=== PATIENT | female | born 1985 | race Caucasian/White ===

== ENCOUNTER 2020-02-02 08:18 | Outpatient (CLI) | payer MEDICAID, OTHER ==
[2020-02-02 16:51] LABS: SARS-CoV-2 MS2 Positive; SARS-CoV-2 N Gene Negative; SARS-CoV-2 S Gene Negative; SARS-CoV-2 by NAA Not Detected (NotDetected); SARS-CoV-2 orf1ab Negative
== END 2020-02-02 08:19 | disposition home or self-care (01) ==
LOC: LABBT 08:18
PROVIDERS: ATTEND Family Medicine
DX: Z20.828 Contact with and (suspected) exposure to other viral communicable diseases (principal)
CPT/HCPCS: 87635; U0003

== ENCOUNTER 2020-02-05 09:09 | Day surgery (SDC) | payer OTHER ==
[2020-02-05 09:45] VITALS: BMI 27.6
[2020-02-05] MEDS ORDERED: Acetaminophen 500 MG TAB PO PRN (09:45)
[2020-02-05] MEDS ORDERED: Iron Sucrose Complex 500 MG in Sodium Chloride 0.9% 250 ML 250 ML IVPB SCH (09:45)
== END 2020-02-05 14:53 | disposition home health service (06) ==
LOC: L&D/OP 09:09
PROVIDERS: ATTEND Student in an Organized Health Care Education/Training Program
DX: Z34.90 Encounter for supervision of normal pregnancy, unspecified, unspecified trimester (principal)
CPT/HCPCS: J1756; J7050

== ENCOUNTER 2020-02-20 06:48 | Inpatient (IN) | payer OTHER ==
[2020-02-20] MEDS ORDERED: hydrALAZINE 20 MG/ML VIAL SLOW IVP PRN (07:46)
[2020-02-20 07:59] VITALS: BMI 27.8
[2020-02-20] MEDS ORDERED: Carboprost 250 MCG/ML AMP IM PRN (08:14)
[2020-02-20] MEDS ORDERED: HYDROcodone/Acetaminophen 5/325 mg Tablet PO PRN ×2 (08:14)
[2020-02-20] MEDS ORDERED: Methylergonovine 0.2 MG/ML VIAL IM PRN (08:14)
[2020-02-20] MEDS ORDERED: Promethazine HCl 25 MG/ML VIAL IM PRN (08:14)
[2020-02-20] MEDS ORDERED: Ibuprofen 800 MG TAB PO PRN (08:14)
[2020-02-20] MEDS ORDERED: Diphenoxylate HCl/Atropine Tablet PO PRN ×2 (08:14)
[2020-02-20] MEDS ORDERED: Ondansetron PF 4 MG/2 ML Vial IVP PRN (08:14)
[2020-02-20] MEDS ORDERED: NS / Oxytocin 40 units/1000ml 1,000 ML IV PRN (08:14)
[2020-02-20] MEDS ORDERED: Misoprostol 200 MCG TAB PR PRN (08:14)
[2020-02-20] MEDS ORDERED: Lidocaine 1% (PF) 30 ML VIAL SC PRN (08:14)
[2020-02-20] MEDS ORDERED: Penicillin G Potassium 5 MILL.UNITS in Sodium Chloride 0.9% 100 ML IVPB SCH (08:15)
[2020-02-20] MEDS ORDERED: NS w/ Oxytocin 10 units 500 ML IV SCH ×2 (08:15)
--- NOTE | 2020-02-20 08:31 | PDOC.FPROB ---
FMR OB H&P: HPI - History of Present Illness Chief Complaint: SROM Indentification: @ 37.2 WGA History of Present Illness: 34YO @ 37.2 WGA presenting for suspected ROM earlier this AM. Reports feeling a large gush of fluid leakage while in bed this AM @ ~0500 & continues to feel some leakage. Denies any regular painful contractions, VB or VD. + LOF. has been complicated by being late to care with first visit @ ~33 WGA. Has also seen MFM for anatomy survey as FOB was born with renal agenesis but reports the scans have been normal. Primary Care Physician: PNCMonisha Lehman FMR OB H&P: Current - Care : 5 Para: 2113 Gestational age: 37.2 weeks Due date: 03/07/2020 Dating Criteria: 33.5 week sono c/w LMP Course/Complications: late to PNC, FH renal agenesis, trich infection in 3T w/ no SHAMIR, severe anemia s/p iron transfusion, HSIL & HRHPV positive - OB Labs Blood type: O RH: positive Antibody Screen: negative HIV: negative RPR: negative HepBsAg: negative Rubella: immune Urine drug screen: not done Gonorrhea: negative Chlamydia: negative GBS: positive H&H: 7.4/23.7 on 01/31/20 before transfusion Platelets: 237 on 01/31/20 Additional labs: 2hr GTT WNLs - Anatomy Survey Anatomy survey: WNLs w/ MFM but did not comment on kidneys of fetus as views were limited 2/2 advanced gestational age FMR OB H&P: History - Past Medical History PMH: Hx depression & PPD - OB History OB History: #1: SAB in 1T #2: @ 40 WGA #3: @ 35 WGA #4: @ 39 WGA - CASH POSTING REPRESENTATIVE History CASH POSTING REPRESENTATIVE History: Pap this HSIL & HR HPV+, + for trich on 02/01/20 w/ no SHAMIR documented yet. 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 No EtOH use. Quit smoking a few weeks ago. Living at the [facility] in [place] currently. Does not have custody of her other 3 children. - Family History Family History: Mother- Cervical CA & HTN FOB- renal agenesis FMR OB H&P: Medications - Current Home Medications: Medication Instructions Recorded Confirmed Type Famotidine 1 tab PO BID 02/05/20 02/20/20 History Iron,Carb/Vit C/Vit B12/Folic 1 tablet PO DAILY 02/20/20 02/20/20 History [Iron 100 Plus] Vitamin 1 tablet PO DAILY 02/20/20 02/20/20 History Allergies/Adverse Reactions: Allergies Allergy/AdvReac Type Severity Reaction Status Date / Time No Known Drug Allergies Allergy Verified 02/05/20 09:47 FMR OB H&P: ROS - Review of Systems General: denies: fever/chills Eyes: denies: eye pain, vision changes ENT: denies: nasal congestion, rhinorrhea Cardiovascular: denies: chest pain, palpitation Respiratory: denies: cough, shortness of breath Gastrointestinal: denies: abdominal pain, nausea, vomiting, diarrhea Genitourinary (Female): reports: contractions. denies: dysuria, hematuria, vaginal discharge, vaginal pain, vaginal bleeding Musculoskeletal: denies: arthritis/arthralgias Neurologic: denies: seizures, headache Integumentary: denies: itching, rash Breast: denies: skin changes Endocrine: denies: polydipsia, polyuria Psychological: denies: depression, anxiety FMR OB H&P: Vital Signs - Heart Tones Baseline: 140 Variability: moderate Acceleration: present Deceleration: absent Category: category 1 [place] contractions every: 4-6 minutes FMR OB H&P: Physical Exam - Physical Exam General: NAD, awake, alert and oriented HEENT: normocephalic and atraumatic, grossly normal vision, grossly normal hearing Neck: supple, FROM Heart: RRR, normal S1/S2, no murmurs/rubs/gallops, pulses present, no edema General: CTAB, no respiratory distress Abdomen: gravid, non-tender Musculoskeletal: normal gait and station, FROM in all four extremities Neurological: cranial nerves II through XII intact, sensation to pain,touch and proprioception grossly normal, no focal deficit Skin: no rash Lymphatic: no unusual bruising or bleeding, no purpura, no petechia Psychiatric: intact recent and remote memory, good judgement and insight, normal mood and affect - Pelvic Exam Deviation from normal: meconuim stained fluid noted on cervical exam SVE: 4/50/-2 Membranes: ruptured Presentation: cephalic FMR OB H&P: A/P - Problem List (1) Rupture of membranes with meconium present Current Visit: Yes Status: Acute Code(s): O77.0 - LABOR AND DELIVERY COMPLICATED BY MECONIUM IN AMNIOTIC FLUID (2) Term Current Visit: Yes Status: Acute Code(s): Z34.90 - ENCNTR FOR SUPRVSN OF NORMAL , UNSP, UNSP TRIMESTER (3) Late care affecting Current Visit: Yes Status: Acute Code(s): O09.30 - SUPRVSN OF PREG W INSUFFICIENT ANTENAT CARE, UNSP TRIMESTER Qualifiers: Trimester: third trimester Qualified Code(s): O09.33 - Supervision of with insufficient care, third trimester Disposition: 34YO @ 37.2 WGA by LMP c/w 33.5 week sono presenting for suspected ROM this AM which was confirmed on exam upon arrival. term SROM: - On exam on arrival light meconium stained fluid was noted, cervical check was 4/50/-2 & regular contractions began shortly after arrival as well but not very painful to patient. - In light of SROM, will admit for routine labor management & start pitocin for augmentation given favorable cervix & meconium stained fluid. - Maternal vitals WNLs & Cat 1 strip w/ baseline in 140s, multiple accels & no decels noted. Ctxs noted q 4-5 minutes. - GBS + so will start pen G infusion as well. late to PNC: - Patient has a difficult social situation & was late to care after moving into town late in her to get away from the FOB who uses drugs. Former drug user her self so doesn't have custody of her other children. Currently living at [facility]. Will obtain a UDS and consult CM to ensure patient will have adequate support following the delivery. Trichonomas + in 3T: - Per chart review, + for trich on 02/01/20. No SHAMIR documented. Will obtain a VP3 on admission. FH of renal agenesis: - Per chart review patient saw [facility] for a survey but no comment was made regarding renal status of fetus. May consider renal US PP. Hx tobacco use: - Quit a few weeks ago. Will encourage continued cessation PP. Hx of meth use: - UDS on admission & consulting CM as noted above. Hx PROM & PTD: - Aware, patient already term this . Dispo: Will admit to L&D for routine intrapartum management. Discussion: Date/Time: 02/20/20828 This H&P was discussed with Dr. Puente who agrees with the above documentation and plan.
[2020-02-20] MEDS ORDERED: Penicillin G Potassium 5 MILL.UNITS VIAL ONE ×2 (08:32→15:01)
[2020-02-20] MEDS: Lactated Ringer's 1,000 ML IV SCH ×3 (09:00→20:17)
[2020-02-20 09:34] LABS: Hemoglobin 10.4 g/dL (12.0-16.0); Mean Corpuscular HGB CONC 33.1 g/dL (32.0-36.0); Mean Corpuscular Hemoglobin 27.5 pg (27.0-31.0); Mean Corpuscular Volume 82.9 fL (78.0-98.0); Mean Platelet Volume 11.2 fL (7.4-10.4); Platelet Count 212 thou/uL (130-400); RBC Distribution Width 22.6 % (11.5-14.5); Red Blood Cell (RBC) Count 3.77 mill/uL (4.20-5.40); White Blood Cell (WBC) Count 8.7 thou/uL (4.8-10.8)
[2020-02-20 10:13] LABS: HBSAg Index 0.14 S/CO (0-0.99); Hep B Surf Ag Non-Reactive S/CO (NonReactive)
[2020-02-20 10:13] LABS: Syphilis Antibody Nonreactive (Nonreactive); Syphilis Antibody Index 0.04 S/CO (<1.00 Non-Reactive)
[2020-02-20 10:41] LABS: Amphetamine Not Detected (NotDetected); Barbiturates Screen Not Detected (NotDetected); Benzodiazepine Screen Not Detected (NotDetected); Cocaine Metabolite Screen Not Detected (NotDetected); Medtox Control Line Valid? VALID (VALID); Medtox Reader # READER 1; Methadone Not Detected (NotDetected); Methamphetamine Not Detected (NotDetected); Opiate Screen Not Detected (NotDetected); Oxycodone Screen Not Detected (NotDetected); Phencyclidine (PCP) Not Detected (NotDetected); THC/Cannabinoid Screen Not Detected (NotDetected); Tricyclic Screen Not Detected (NotDetected)
--- NOTE | 2020-02-20 10:51 | PDOC.LDPN ---
Labor & Delivery Progress Note - Subjective Subjective: comfortable (contractions slowly getting more painful) - Objective Vital signs reviewed and normal: yes General: NAD, resting Dilation: 5 Effacement: 75% Station: -1 FHT: category 1 Resuscitative measures: maternal IV fluids Plan: continue plan of care, labor augmentation, pitocin for augmentation -: -pt still does not want epidural though she has watched video -making progress slowly -will monitor closely and recheck within 4hrs once she starts feeling contractions more
[2020-02-20] MEDS: Penicillin G 2.5 MILL.units 2.5 MILL.UNITS in Premix Bag 1 BAG IVPB SCH ×2 (12:48→17:15)
--- NOTE | 2020-02-20 14:04 | PDOC.OPDEL ---
OB Operative/Delivery Note - Additional Findings/Plan Compilations/Other Findings: Delivering Physician: Karen Sanders Attending: Dr. Puente Procedure: Spontaneous Vaginal Delivery Anesthesia: none QBL: 276 ml Pre-op Diagnosis: 1. Term intrauterine in labor 2. Late to care 3. Severe anemia of s/p iron transfusion Post-op Diagnosis: 1. Term intrauterine , delivered 2. same as above Indications: A 34 y/o female presents in labor after SROM at home notable for meconium. Delivery Note: This is 34 yo F @ 37.2 wks who delivered a viable F infant at 1336 on 02/20/20. Following an uneventful antepartum course, a vigorous female was delivered over an intact perineum in the occipitoanterior position. Anterior Shoulder and then remainder of the body delivered. No nuchal cord. The head was held down and mouth and nares were bulb suctioned. Cord c lamped after delayed cord clamping and cut and cord blood collected. Placenta delivered intact (in the Durán presentation) with a 3 vessel cord noted. Fundal massage was performed and the fundus was firm. The cervix and vagina were inspected and found to have one small laceration that was hemostatic and did not require repair. went to nursery in good condition for routine care. Apgars were 8/9 at 1 & 5 minutes, respectively. Patient tolerated delivery well and went to after routine recovery/care. Addendum - Attending - Attending Attestation Date/Time: 02/21/20 4457 I personally evaluated the patient and discussed the management with Dr. PIMENTEL I agree with the History, Examination, Assessment and Plan documented above with any addition or exceptions noted below. I was present and supervising, and instructing through the 2nd and 3rd stages of labor
[2020-02-20] MEDS ORDERED: Preparation H Ointment 28 GM TUBE PR PRN (15:49)
[2020-02-20] MEDS ORDERED: diphenhydrAMINE 25 MG CAP PO PRN (15:49)
[2020-02-20] MEDS ORDERED: Bisacodyl 10 MG SUPP PR PRN (15:49)
[2020-02-20] MEDS ORDERED: Lanolin Ointment 7 GM TUBE TOP PRN (15:49)
[2020-02-20] MEDS ORDERED: NS / Oxytocin 40 units/1000ml 1,000 ML IV SCH (15:49)
[2020-02-20] MEDS ORDERED: Milk Of Magnesia 30 ML UDCUP PO PRN (15:49)
[2020-02-20] MEDS ORDERED: Benzocaine-Menthol 82.5 ML CAN TOP PRN (15:49)
[2020-02-20 16:15] LABS: SARS-CoV-2 MS2 Positive; SARS-CoV-2 N Gene Negative; SARS-CoV-2 S Gene Negative; SARS-CoV-2 by NAA Not Detected (NotDetected); SARS-CoV-2 orf1ab Negative
[2020-02-20] MEDS ORDERED: Ferrous Sulfate 325 MG TAB PO SCH (17:00)
[2020-02-20] MEDS: Ibuprofen 800 MG TAB PO SCH ×2 (17:15→19:47)
[2020-02-20] MEDS: Docusate Calcium (SURFAK) 240 MG CAP PO SCH (19:47)
[2020-02-21] MEDS: Ibuprofen 800 MG TAB PO SCH ×3 (04:49→21:47)
--- NOTE | 2020-02-21 07:02 | PDOC.OBPPN ---
FMR OB PN: Subj - Interval History Hospital Day: 2 Day: 1 Chief Complaint: None Indentification: 34YO Interval History: Tolerating PO, voiding & passing gas normally. Pain controlled. VS stable. FMR OB PN: Obj - Maternal Vital signs: BP: 136/84 HR: 75 RR: 16 Tmax: 98.9F Pox: 97% on RA Wt: 68 kg - Urine output I&O: 02/20/20 02/21/20 02/22/20 06:59 06:59 06:59 Output Total 604 Balance -604 - Lochia Lochia: normal - Pain Management Pain scale: 0 Intervention: oral medication FMR OB PN: Exam - Physical Exam General: NAD, awake, alert and oriented HEENT: normocephalic and atraumatic, conjunctiva clear, grossly normal vision, grossly normal hearing Neck: supple, FROM Heart: RRR, normal S1/S2, no murmurs/rubs/gallops, pulses present, no edema General: CTAB, no respiratory distress, good air movement Abdomen: gravid, fundus(cm) (firm just below umbilicus), bowel sound present Musculoskeletal: normal gait and station, pulses present, FROM in all four extremities Neurological: cranial nerves II through XII intact, sensation to pain,touch and proprioception grossly normal, no focal deficit Lymphatic: no unusual bruising or bleeding, no purpura, no petechia Psychiatric: intact recent and remote memory, good judgement and insight, normal mood and affect - Pelvic Exam : perineal incision/laceration healing well, no discharge, no edema, normal lochia FMR OB PN: Data - Labs Lab results: Laboratory Results - last 24 hr 02/20/20 02/20/20 02/20/20 09:22 09:22 09:22 WBC 8.7 RBC 3.77 L Hgb 10.4 L Hct 31.3 L MCV 82.9 MCH 27.5 MCHC 33.1 RDW 22.6 H Plt Count 212 MPV 11.2 H Urine Opiates Screen Ur Oxycodone Screen Urine Methadone Screen Ur Propoxyphene Screen Ur Barbiturates Screen Ur Tricyclics Screen Ur Phencyclidine Scrn Ur Amphetamines Screen U Methamphetamines Scrn U Benzodiazepines Scrn U Cocaine Metab Screen U Cannabinoids Screen Drug Screen Comment Syphilis IgG/IgM Ab SARS-CoV-2 (PCR) Hep Bs Antigen Non-Reactive Blood Type O POSITIVE Antibody Screen NEGATIVE 02/20/20 02/20/20 02/20/20 09:23 10:11 10:12 WBC RBC Hgb Hct MCV MCH MCHC RDW Plt Count MPV Urine Opiates Screen Not Detected Ur Oxycodone Screen Not Detected Urine Methadone Screen Not Detected Ur Propoxyphene Screen Not Detected Ur Barbiturates Screen Not Detected Ur Tricyclics Screen Not Detected Ur Phencyclidine Scrn Not Detected Ur Amphetamines Screen Not Detected U Methamphetamines Scrn Not Detected U Benzodiazepines Scrn Not Detected U Cocaine Metab Screen Not Detected U Cannabinoids Screen Not Detected Drug Screen Comment Syphilis IgG/IgM Ab Nonreactive SARS-CoV-2 (PCR) Not Detected Hep Bs Antigen Blood Type Antibody Screen 02/20/20 11:29 WBC RBC Hgb Hct MCV MCH MCHC RDW Plt Count MPV Urine Opiates Screen Ur Oxycodone Screen Urine Methadone Screen Ur Propoxyphene Screen Ur Barbiturates Screen Ur Tricyclics Screen Ur Phencyclidine Scrn Ur Amphetamines Screen U Methamphetamines Scrn U Benzodiazepines Scrn U Cocaine Metab Screen U Cannabinoids Screen Drug Screen Comment Syphilis IgG/IgM Ab SARS-CoV-2 (PCR) Hep Bs Antigen Blood Type O POSITIVE Antibody Screen FMR OB PN: A/P - Problem List (1) Rupture of membranes with meconium present Current Visit: Yes Status: Acute Code(s): O77.0 - LABOR AND DELIVERY COMPLICATED BY MECONIUM IN AMNIOTIC FLUID (2) Term Current Visit: Yes Status: Acute Code(s): Z34.90 - ENCNTR FOR SUPRVSN OF NORMAL , UNSP, UNSP TRIMESTER (3) Late care affecting Current Visit: Yes Status: Acute Code(s): O09.30 - SUPRVSN OF PREG W INSUFFICIENT ANTENAT CARE, UNSP TRIMESTER Qualifiers: Trimester: third trimester Qualified Code(s): O09.33 - Supervision of with insufficient care, third trimester Disposition: 34YO who is PP day #1 s/p @ 37.2 WGA. PP day #1 s/p term : - Patient doing well without complaints. Tolerating PO, passing gas, voiding & ambulating normally. Pain well controlled on PO meds. Elevated BPs without diagnosis of HTN, gHTN or pre-e: - Patient had 2 104 SBPs intrapartum & 1 149 SBP PP. No severe range symptoms. Will continue to monitor pressures over course of today. Iron deficiency anemia: - Admission Hgb 10.4 s/p iron infusion & back down to 8.4 this AM. Will continue PO iron & PNVs PP. late to PNC: - Patient has a difficult social situation & was late to care after moving into town late in her to get away from the FOB who uses drugs. Former drug user her self so doesn't have custody of her other children. Currently living at [facility] in [place]. UDS negative on admission and CM evaluation pending to ensure patient will have adequate support following the delivery. Trichonomas + in 3T: - negative SHAMIR done on admission. FH of renal agenesis: - Per chart review patient saw [facility] for a survey but no comment was made regarding renal status of fetus. May consider renal US prior to d/c. Hx tobacco use: - Quit a few weeks ago. Will encourage continued cessation PP. Hx of meth use: - UDS negative on admission & CM consulted as noted above. HSIL & HRHPV + pap antepartum: - Patient needs colpo 6 weeks PP. Will f/u in 2 weeks for routine PP visit & again @ 4 weeks to ensure colpo gets JANINE. Dispo: Will plan to monitor BPs today & d/c home tomorrow AM pending clinical course. Discussion: Date/Time: 02/21/20 0700 This H&P was discussed with Dr. Puente who agrees with the above documentation and plan.
[2020-02-21 07:21] LABS: #Basophils 0.1 thou/uL (0.0-0.2); #Eosinphils 0.3 thou/uL (0.0-0.7); #Lymphocytes 3.8 thou/uL (1.20-3.40); #Monocytes 0.8 thou/uL (0.11-0.59); #Neutrophils 9.9 thou/uL (1.40-6.50); %Basophils 0.5 % (0.0-1.0); %Lymphocytes 25.6 % (21.0-51.0); %Monocytes 5.4 % (0.0-10.0); %Neutrophils 66.5 % (42.0-75.0); Hemoglobin 8.4 g/dL (12.0-16.0); Mean Corpuscular HGB CONC 32.1 g/dL (32.0-36.0); Mean Corpuscular Hemoglobin 27.5 pg (27.0-31.0); Mean Corpuscular Volume 85.5 fL (78.0-98.0); Mean Platelet Volume 10.6 fL (7.4-10.4); Platelet Count 195 thou/uL (130-400); RBC Distribution Width 22.7 % (11.5-14.5); Red Blood Cell (RBC) Count 3.04 mill/uL (4.20-5.40); White Blood Cell (WBC) Count 14.9 thou/uL (4.8-10.8)
[2020-02-21 07:22] LABS: MDiff Complete? YES
[2020-02-21] MEDS ORDERED: FLU VACC QS2020-21(6MOS UP)/PF 60 MCG/0.5 ML SYRINGE IM ONE (08:15)
[2020-02-21] MEDS ORDERED: Ferrous Sulfate 325 MG TAB PO SCH (09:00)
[2020-02-21] MEDS: Docusate Calcium (SURFAK) 240 MG CAP PO SCH ×2 (09:24→21:47)
[2020-02-21] MEDS: Adacel (T-DAP) 0.5 ML SYRINGE IM ONE (09:28)
[2020-02-22] MEDS: Ibuprofen 800 MG TAB PO SCH (05:32)
--- NOTE | 2020-02-22 07:02 | PDOC.OBPPN ---
FMR OB PN: Subj - Interval History Hospital Day: 3 Day: 2 Chief Complaint: None Indentification: 34YO who is PP day #2 s/p @ 37.2 WGA Interval History: Tolerating PO, voiding, passing gas & ambulating normally. Pain controlled. FMR OB PN: Obj - Maternal Vital signs: BP: 126/74 HR: 78 RR: 20 Tmax: 98.1F Pox: 99% on RA Wt: 68 kg - Urine output I&O: 02/21/20 02/22/20 02/23/20 06:59 06:59 06:59 Output Total 604 Balance -604 - Lochia Lochia: minimal - Pain Management Pain scale: 0 Intervention: oral medication FMR OB PN: Exam - Physical Exam General: NAD, awake, alert and oriented HEENT: normocephalic and atraumatic, grossly normal vision, grossly normal hearing Neck: supple, FROM Heart: RRR, normal S1/S2, no murmurs/rubs/gallops General: CTAB, no respiratory distress, good air movement Abdomen: soft, fundus(cm) (firm just below umbilicus), non-tender Musculoskeletal: normal gait and station, FROM in all four extremities Neurological: cranial nerves II through XII intact, sensation to pain,touch and proprioception grossly normal, no focal deficit Psychiatric: intact recent and remote memory, good judgement and insight, normal mood and affect - Pelvic Exam : normal lochia FMR OB PN: Data - Labs Lab results: Laboratory Results - last 24 hr 02/21/20 06:12 WBC 14.9 H RBC 3.04 L Hgb 8.4 L Hct 26.0 L MCV 85.5 MCH 27.5 MCHC 32.1 RDW 22.7 H Plt Count 195 MPV 10.6 H Neutrophils % 66.5 Neutrophils % (Manual) Not Reportable Lymphocytes % 25.6 Monocytes % 5.4 Eosinophils % 2.0 Basophils % 0.5 Neutrophils # 9.9 H Lymphocytes # 3.8 H Monocytes # 0.8 H Eosinophils # 0.3 Basophils # 0.1 FMR OB PN: A/P - Problem List (1) Rupture of membranes with meconium present Current Visit: Yes Status: Acute Code(s): O77.0 - LABOR AND DELIVERY COMPLICATED BY MECONIUM IN AMNIOTIC FLUID (2) Term Current Visit: Yes Status: Acute Code(s): Z34.90 - ENCNTR FOR SUPRVSN OF NORMAL , UNSP, UNSP TRIMESTER (3) Late care affecting Current Visit: Yes Status: Acute Code(s): O09.30 - SUPRVSN OF PREG W INSUFFICIENT ANTENAT CARE, UNSP TRIMESTER Qualifiers: Trimester: third trimester Qualified Code(s): O09.33 - Supervision of with insufficient care, third trimester Disposition: 34YO who is PP day #2 s/p @ 37.2 WGA. PP day #2 s/p term : - Patient doing well without complaints. Tolerating PO, passing gas, voiding & ambulating normally. Pain well controlled on PO meds. Continue routine PP care. Elevated BPs without diagnosis of HTN, gHTN or pre-e: - Patient had 2 140 SBPs intrapartum & now 2 140s SBP PP. No severe range symptoms. Will have patient monitor BP daily upon d/c have her f/u @ PNC within 1 week of discharge for close monitoring. Iron deficiency anemia: - Admission Hgb 10.4 s/p iron infusion & back down to 8.4 yesterday. Will continue PO iron & PNVs PP. late to PNC: - Patient has a difficult social situation & was late to care after moving into town late in her to get away from the B who uses drugs. Former drug user her self so doesn't have custody of her other children. Currently living at [facility] in [place]. UDS negative on admission and CM cleared baby for d/c back to [facility] with mom upon discharge yesterday. Trichonomas + in 3T: - negative SHAMIR done on admission. FH of renal agenesis: - Per chart review patient saw [facility] [place] & 2 kidneys were noted. Hx tobacco use: - Quit a few weeks ago. Will encourage continued cessation PP. Hx of meth use: - UDS negative on admission & CM consulted as noted above. HSIL & HRHPV + pap antepartum: - Patient needs colpo 6 weeks PP. Will f/u in 1 week for routine PP visit & again @ 2 weeks to ensure colpo gets JANINE. Dispo: Will d/c to B&B today as infant was started on phototherapy this AM. Discussion: Date/Time: 02/22/20 07 This H&P was discussed with Dr. Davis who agrees with the above documentation and plan.
[2020-02-22 07:53] VITALS: BP 126/74; TEMP 98.1
[2020-02-22] MEDS: Docusate Calcium (SURFAK) 240 MG CAP PO SCH (09:03)
[2020-02-22] MEDS ORDERED: Boostrix 0.5 ML VIAL IM ONE (10:45)
[2020-02-22] MEDS: Adacel (T-DAP) 0.5 ML SYRINGE IM ONE (11:12)
== END 2020-02-22 11:30 | disposition home or self-care (01) | DRG 806 ==
LOC: L&D/OP 06:48 → L&D 07:19 → 3SW 17:51
PROVIDERS: ADMIT Obstetrics & Gynecology; ATTEND Obstetrics & Gynecology
PROC: 10E0XZZ Delivery of Products of Conception, External Approach (ICD-10-PCS; principal; 2020-02-20)
DX: O77.0 Labor and delivery complicated by meconium in amniotic fluid (principal); O99.324 Drug use complicating childbirth; Z37.0 Single live birth; Z3A.37 37 weeks gestation of pregnancy; O99.824 Streptococcus B carrier state complicating childbirth; O99.02 Anemia complicating childbirth; D50.9 Iron deficiency anemia, unspecified; R03.0 Elevated blood-pressure reading, without diagnosis of hypertension; O35.8XX0 Maternal care for other (suspected) fetal abnormality and damage, not applicable or unspecified; O99.334 Smoking (tobacco) complicating childbirth; F17.200 Nicotine dependence, unspecified, uncomplicated; F15.10 Other stimulant abuse, uncomplicated; Z20.828 Contact with and (suspected) exposure to other viral communicable diseases; O70.0 First degree perineal laceration during delivery; Z86.19 Personal history of other infectious and parasitic diseases
CPT/HCPCS: 36415; 80306; 85025; 85027; 86780; 86850; 86900; 86901; 87340; 87480; 87510; 87635; 87660; 90471; 90662; 90715; 99285; G0008; J2540; J2590; J3490; U0003